=== PATIENT | male | born 1980 | race Caucasian/White ===

== ENCOUNTER 2023-09-28 17:30 | Emergency (ER) | payer SELFPAY ==
[~2023-09-28] VITALS: Ht 167.6 cm; Wt 74.8 kg
[2023-09-28 17:32] VITALS: TEMP 98.7
[2023-09-28] MEDS: LIDOCAINE 2% 1000 MG/50 ML VIAL INJ ONE (17:53)
== END 2023-09-28 19:36 | disposition home or self-care (01) ==
LOC: MED 17:30
DX: S61.214A Laceration without foreign body of right ring finger without damage to nail, initial encounter (principal); Z79.899 Other long term (current) drug therapy; X58.XXXA Exposure to other specified factors, initial encounter; Y93.89 Activity, other specified; Y92.89 Other specified places as the place of occurrence of the external cause; Y99.8 Other external cause status
CPT/HCPCS: 12001; 73130; 90471; 90715; 99283; J2001

== ENCOUNTER 2023-09-29 16:26 | Emergency (ER) | payer SELFPAY ==
[~2023-09-29] VITALS: Ht 167.6 cm; Wt 74.8 kg
[2023-09-29 16:50] VITALS: BP 155/97; PULSE 97; RESP 18; TEMP 98.7; O2SAT 98
== END 2023-09-29 17:09 | disposition left against medical advice (07) ==
LOC: MED 16:26
DX: S61.214D Laceration without foreign body of right ring finger without damage to nail, subsequent encounter (principal); Z53.21 Procedure and treatment not carried out due to patient leaving prior to being seen by health care provider; Z48.00 Encounter for change or removal of nonsurgical wound dressing; X58.XXXD Exposure to other specified factors, subsequent encounter
CPT/HCPCS: 99281